=== PATIENT | female | born 1950 | race Caucasian/White ===

== ENCOUNTER → 2016-06-11 | Outpatient (CLI) | payer MEDICARE ==
[~2016-06-11] MED LIST: BONI150T PO; BONIVA; FLON1SPR; FLOVENT110; NEXI40CA PO; PRILOSECOT; PROA1AER INH; VERAP80TA PO; ZYRT10TA2 PO; ZYRTEC10
[2016-06-11 16:49] LABS: MEAN CORPUSCULAR HEMOGLOBIN 31.2 pg (27.0-33.0); MEAN CORPUSCULAR HGB CONC 33.8 g/dl (32.0-36.5); MEAN CORPUSCULAR VOLUME 92.3 fl (80.0-96.0); RED CELL DISTRIBUTION WIDTH 13.1 % (11.5-14.5); WHITE BLOOD COUNT 5.7 K/mm3 (4.0-10.0)
[2016-06-11 17:22] LABS: ALBUMIN 4.3 GM/DL (3.2-5.2); ALBUMIN/GLOBULIN RATIO 1.48 (1.00-1.93); ALKALINE PHOSPHATASE 50 U/L (45-117); ALT/SGPT 22 U/L (12-78); ANION GAP 10 MEQ/L (8-16); AST/SGOT 14 U/L (15-37); BILIRUBIN,TOTAL 0.4 MG/DL (0.2-1.0); BLOOD UREA NITROGEN 13 MG/DL (7-18); CARBON DIOXIDE LEVEL 27 MEQ/L (21-32); CHLORIDE LEVEL 104 MEQ/L (98-107); CREATININE FOR GFR 0.69 MG/DL (0.55-1.02); GLOMERULAR FILTRATION RATE > 60.0 (>45); GLUCOSE, FASTING 85 MG/DL (80-110); POTASSIUM SERUM 3.8 MEQ/L (3.5-5.1); SODIUM LEVEL 141 MEQ/L (136-145); TOTAL PROTEIN 7.2 GM/DL (6.4-8.2)
== END ==
LOC: M LAB 15:39
PROVIDERS: ATTEND Physician Assistant Medical
DX: R19.7 Diarrhea, unspecified (principal)

== ENCOUNTER → 2016-06-16 | Outpatient (CLI) | payer MEDICARE ==
[~2016-06-16] MED LIST changes: +E-Z-PAQUE 96% w/w SUSP 176GM BTL As Ordered ONE
--- NOTE | 2016-06-17 06:07 | REP ---
SMALL BOWEL FOLLOW THROUGH: The procedure was performed under the direct supervision of Dr. Banda. The images were reviewed with Dr. Banda. The operations dispatcher film shows no organomegaly or pathological masses. The intestinal gas pattern is nonspecific. Liquid barium was administered and the barium column was followed through the small bowel to the level of the terminal ileum. Small bowel transit time was approximately 15 minutes. During fluoroscopy, gentle palpation shows all loops are freely movable and pliable. There are no fixed or angulated loops. The small bowel mucosal pattern is normal in course and caliber. There is no transition to suggest a partial small bowel obstruction. Spot filming of the terminal ileum shows it to be unremarkable. IMPRESSION: Small bowel follow through examination within normal limits. 1 minute and 3 seconds of fluoroscopy time was utilized for this procedure. Reviewed by LEMUEL Bruno 06/17/2016 03:38 PEdited and Signed by Bakari Banda MD 06/17/2016 04:50 P
== END ==
LOC: M RAD 07:47
PROVIDERS: ATTEND Physician Assistant Medical
DX: R19.7 Diarrhea, unspecified (principal); R10.84 Generalized abdominal pain

== ENCOUNTER → 2016-06-25 | Outpatient (CLI) | payer MEDICARE ==
[~2016-06-25] VITALS: Ht 160 cm; Wt 62.6 kg
[~2016-06-25] MED LIST changes: -E-Z-PAQUE 96% w/w SUSP 176GM BTL As Ordered ONE; +LIDOCAINE 2% INJ 100 MG/5 ML SDV (FOR ANES.) As Ordered ONE; +NS 1,000 ML IV ONE; +PRAV10TA PO; +PROPOFOL 500 MG/50 ML VIAL As Ordered ONE; +VITA1CAP7 PO
--- NOTE | 2016-06-25 08:35 | ROOR ---
Patient Name: Jayshree Farfan Procedure Date: 06/25/2016 8:10 AM Date of : 1950 Age: 66 Room: [facility] Gender: Female Note Status: Finalized Procedure: Colonoscopy Indications: Chronic diarrhea, Follow-up of microscopic colitis Providers: Cachorro LUZ MD Referring MD: Renay Mccall MD Requesting Provider: Medicines: Monitored Anesthesia Care Complications: No immediate complications. Procedure: Pre-Anesthesia Assessment: - The heart rate, respiratory rate, oxygen saturations, blood pressure, adequacy of pulmonary ventilation, and response to care were monitored throughout the procedure. The Colonoscope was introduced through the anus and advanced to 4 cm into the ileum. The colonoscopy was performed without difficulty. The patient tolerated the procedure well. The quality of the bowel preparation was good. Findings: The perianal and digital rectal examinations were normal. The colon (entire examined portion) was redundant. The terminal ileum appeared normal. A few small-mouthed diverticula were found in the sigmoid colon. The entire examined colon appeared normal on direct and retroflexion views. Biopsies for histology were taken with a cold forceps from the entire colon for evaluation of microscopic colitis. Impression: - The terminal ileum is normal. - Minimal diverticulosis in the sigmoid colon. - The entire colon is otherwise normal on direct and retroflexion views. - Biopsies were taken with a cold forceps from the entire colon for evaluation of microscopic colitis. Recommendation: - Await pathology results. - Telephone endoscopist for pathology results in 2 weeks. Cachorro Luz MD Cachorro LUZ MD 06/25/2016 8:34:44 AM This report has been signed electronically. Number of Addenda: 0 Note Initiated On: 06/25/2016 8:10 AM Estimated Blood Loss: Estimated blood loss: none.
[2016-06-25 08:50] VITALS: BP 154/87
== END | disposition home or self-care (01) ==
LOC: M OPP 07:03
PROVIDERS: ATTEND Internal Medicine Gastroenterology
DX: K52.9 Noninfective gastroenteritis and colitis, unspecified (principal); K57.30 Diverticulosis of large intestine without perforation or abscess without bleeding; E78.5 Hyperlipidemia, unspecified; K21.9 Gastro-esophageal reflux disease without esophagitis; M19.90 Unspecified osteoarthritis, unspecified site; M81.0 Age-related osteoporosis without current pathological fracture; Z87.891 Personal history of nicotine dependence; Z79.899 Other long term (current) drug therapy; Z88.2 Allergy status to sulfonamides; Z88.0 Allergy status to penicillin; Z91.040 Latex allergy status

== ENCOUNTER → 2017-03-10 | Outpatient (CLI) | payer MEDICARE ==
[2017-03-10 07:59] LABS: BASO % 0.5 % (0.0-1.0); EOS # 0.1 10^3/uL (0.0-0.50); EOS % 2.2 % (0.0-3.0); HEMATOCRIT 42.7 % (36.0-47.0); IMMATURE GRANULOCYTE % 0.2 % (0-0); LYMPH # 1.4 10^3/uL (1.5-4.5); LYMPH % 23.8 % (24.0-44.0); MEAN CORPUSCULAR HEMOGLOBIN 28.9 pg (27.0-33.0); MEAN CORPUSCULAR HGB CONC 32.8 g/dl (32.0-36.5); MEAN CORPUSCULAR VOLUME 88.2 fl (80.0-96.0); MONO # 0.4 10^3/uL (0.0-0.8); MONO % 7.6 % (0.0-5.0); NEUTROPHILS # 3.8 10^3/uL (1.8-7.7); NEUTROPHILS % 65.7 % (36.0-66.0); PLATELET COUNT, AUTOMATED 208 10^3/uL (150-450); RED BLOOD COUNT 4.84 10^6/uL (4.00-5.40); RED CELL DISTRIBUTION WIDTH 13.8 % (11.5-14.5); WHITE BLOOD COUNT 5.8 10^3/uL (4.0-10.0)
[2017-03-10 08:30] LABS: ERYTHROCYTE SEDIMENTATION RATE 4 mm/hr (0-30)
== END ==
LOC: M LAB 07:37
DX: K62.5 Hemorrhage of anus and rectum (principal)
CPT/HCPCS: 85025

== ENCOUNTER 2017-04-13 10:31 | Emergency (ER) | payer MEDICARE ==
[2017-04-13] MEDS: NS 1,000 ML IV (10:52)
[2017-04-13] MEDS: ASPIRIN 81 MG CHEW TABLET PO (10:57)
[2017-04-13 11:03] LABS: BASO % 0.3 % (0.0-1.0); EOS # 0.2 10^3/uL (0.0-0.50); EOS % 1.3 % (0.0-3.0); HEMATOCRIT 45.6 % (36.0-47.0); HEMOGLOBIN 15.3 g/dl (12.0-16.0); IMMATURE GRANULOCYTE % 0.5 % (0-3.0); LYMPH # 2.1 10^3/uL (1.5-4.5); LYMPH % 16.8 % (24.0-44.0); MEAN CORPUSCULAR HEMOGLOBIN 29.5 pg (27.0-33.0); MEAN CORPUSCULAR HGB CONC 33.6 g/dl (32.0-36.5); MEAN CORPUSCULAR VOLUME 87.9 fl (80.0-96.0); MONO # 0.7 10^3/uL (0.0-0.8); MONO % 5.9 % (0.0-5.0); NEUTROPHILS # 9.2 10^3/uL (1.8-7.7); NEUTROPHILS % 75.2 % (36.0-66.0); PLATELET COUNT, AUTOMATED 243 10^3/uL (150-450); RED BLOOD COUNT 5.19 10^6/uL (4.00-5.40); RED CELL DISTRIBUTION WIDTH 13.9 % (11.5-14.5); WHITE BLOOD COUNT 12.3 10^3/uL (4.0-10.0)
[2017-04-13 11:25] LABS: ANION GAP 11 MEQ/L (8-16); BLOOD UREA NITROGEN 13 MG/DL (7-18); CALCIUM LEVEL 9.5 MG/DL (8.8-10.2); CARBON DIOXIDE LEVEL 24 MEQ/L (21-32); CHLORIDE LEVEL 105 MEQ/L (98-107); CREATININE FOR GFR 0.85 MG/DL (0.55-1.30); GLOMERULAR FILTRATION RATE > 60.0 (>45); GLUCOSE, FASTING 97 MG/DL (70-100); POTASSIUM SERUM 3.2 MEQ/L (3.5-5.1); SODIUM LEVEL 140 MEQ/L (136-145)
[2017-04-13 11:26] LABS: NT-PRO BNP 235 PG/ML (<125)
[2017-04-13 11:27] LABS: INR 0.91; PROTHROMBIN TIME 12.3 SECONDS (12.4-14.5)
[2017-04-13] MEDS: POTASSIUM CHLORIDE 10 MEQ SR TABLET PO (12:26)
== END 2017-04-13 12:42 | disposition home or self-care (01) ==
LOC: M ED 10:31
DX: I47.1 Supraventricular tachycardia (principal); R00.2 Palpitations; R42 Dizziness and giddiness; R07.9 Chest pain, unspecified; J01.90 Acute sinusitis, unspecified; J45.909 Unspecified asthma, uncomplicated; Z79.2 Long term (current) use of antibiotics; Z79.899 Other long term (current) drug therapy; Z88.1 Allergy status to other antibiotic agents; Z88.0 Allergy status to penicillin; Z88.2 Allergy status to sulfonamides; Z91.040 Latex allergy status
CPT/HCPCS: 71045

== ENCOUNTER → 2020-12-03 | Outpatient (CLI) | payer MEDICARE, OTHER ==
[~2020-12-03] MED LIST changes: +AZIT-12 PO; -BONI150T PO; +BONI1TAB PO; +D-3-50003 PO; -LIDOCAINE 2% INJ 100 MG/5 ML SDV (FOR ANES.) As Ordered ONE; -NS 1,000 ML IV ONE; -PRAV10TA PO; +PRAV10TA4 PO; -PROA1AER INH; +PROAAER10 INH; -PROPOFOL 500 MG/50 ML VIAL As Ordered ONE; +VERA80TA3 PO; -VERAP80TA PO; -VITA1CAP7 PO; +ZYRT10CA5 PO; -ZYRT10TA2 PO
[2020-12-03 20:18] LABS: ALBUMIN 4.4 GM/DL (3.2-5.2); ALT/SGPT 26 U/L (12-78); BILIRUBIN,TOTAL 0.3 MG/DL (0.2-1.0); BLOOD UREA NITROGEN 13 MG/DL (7-18); CALCIUM LEVEL 9.6 MG/DL (8.8-10.2); CARBON DIOXIDE LEVEL 28 MEQ/L (21-32); CHLORIDE LEVEL 107 MEQ/L (98-107); CREATININE FOR GFR 0.85 MG/DL (0.55-1.30); GLOMERULAR FILTRATION RATE > 60.0 (>39); GLUCOSE, FASTING 95 MG/DL (70-100); MAGNESIUM LEVEL 2.4 MG/DL (1.8-2.4); SODIUM LEVEL 140 MEQ/L (136-145); TOTAL PROTEIN 7.6 GM/DL (6.4-8.2)
== END ==
LOC: M WUC 15:33
PROVIDERS: ATTEND Physician Assistant
DX: I47.1 Supraventricular tachycardia (principal)

== ENCOUNTER → 2021-05-21 | Outpatient (CLI) | payer MEDICARE ==
[2021-05-21 16:01] LABS: HEMATOCRIT 41.7 % (36.0-47.0); HEMOGLOBIN 13.7 g/dl (12.0-15.5); MEAN CORPUSCULAR HEMOGLOBIN 29.8 pg (27.0-33.0); MEAN CORPUSCULAR HGB CONC 32.9 g/dl (32.0-36.5); MEAN CORPUSCULAR VOLUME 90.8 fl (80.0-96.0); PLATELET COUNT, AUTOMATED 191 10^3/uL (150-450); RED BLOOD COUNT 4.59 10^6/uL (4.00-5.40); WHITE BLOOD COUNT 8.4 10^3/uL (4.0-10.0)
[2021-05-21 16:41] LABS: ALBUMIN 4.3 GM/DL (3.2-5.2); ALT/SGPT 26 U/L (12-78); BILIRUBIN,TOTAL 0.6 MG/DL (0.2-1.0); BLOOD UREA NITROGEN 13 MG/DL (7-18); CALCIUM LEVEL 9.4 MG/DL (8.8-10.2); CARBON DIOXIDE LEVEL 28 MEQ/L (21-32); CHLORIDE LEVEL 107 MEQ/L (98-107); CREATININE FOR GFR 0.76 MG/DL (0.55-1.30); FREE T4 0.83 NG/DL (0.76-1.46); GLOMERULAR FILTRATION RATE > 60.0 (>39); GLUCOSE, FASTING 103 MG/DL (70-100); MAGNESIUM LEVEL 2.1 MG/DL (1.8-2.4); POTASSIUM SERUM 3.5 MEQ/L (3.5-5.1); SODIUM LEVEL 141 MEQ/L (136-145); TOTAL PROTEIN 7.4 GM/DL (6.4-8.2)
== END ==
LOC: M WUC 13:35
PROVIDERS: ATTEND Physician Assistant
DX: R00.2 Palpitations (principal)

== ENCOUNTER 2022-09-24 06:59 | Day surgery (SDC) | payer MEDICARE ==
[~2022-09-24] VITALS: Ht 157.5 cm; Wt 60.4 kg
[~2022-09-24 06:59] MED LIST changes: +ASPI81TA26 PO; +CALC600T61 PO; +CETI10CH PO; +COLA100C5 PO; +LIDOCAINE 2% 100MG/5ML SDV (FOR ANES.) As Ordered ONE; +NS 1,000 ML IV ONE; +PROBCAP14 PO; +VERA120T71 PO; +propofoL 200 MG/20 ML VIAL As Ordered ONE
[2022-09-24] MEDS ORDERED: ONDANSETRON 4MG 2ML VIAL As Ordered ONE (08:14)
[2022-09-24 08:36] VITALS: TEMP 97
[2022-09-24 09:01] VITALS: BP 118/58; O2SAT 95
== END 2022-09-24 09:03 | disposition home or self-care (01) ==
LOC: M OPP 06:59
PROVIDERS: ATTEND Internal Medicine Gastroenterology
DX: K92.1 Melena (principal); K57.30 Diverticulosis of large intestine without perforation or abscess without bleeding; K57.32 Diverticulitis of large intestine without perforation or abscess without bleeding; K63.5 Polyp of colon; R93.3 Abnormal findings on diagnostic imaging of other parts of digestive tract; Z79.02 Long term (current) use of antithrombotics/antiplatelets; Z79.899 Other long term (current) drug therapy; Z88.0 Allergy status to penicillin; Z88.1 Allergy status to other antibiotic agents; Z88.2 Allergy status to sulfonamides; Z91.040 Latex allergy status
CPT/HCPCS: 45380; 88305; J2405

== ENCOUNTER → 2022-09-28 | Outpatient (CLI) | payer MEDICARE, OTHER ==
[~2022-09-28] MED LIST changes: -LIDOCAINE 2% 100MG/5ML SDV (FOR ANES.) As Ordered ONE; -NS 1,000 ML IV ONE; -propofoL 200 MG/20 ML VIAL As Ordered ONE
== END ==
LOC: M WUC 08:09
DX: M25.572 Pain in left ankle and joints of left foot (principal)

== ENCOUNTER → 2023-06-15 | Outpatient (CLI) | payer MEDICARE | LOC: M PLAIMG 12:24 | PROVIDERS: ATTEND Physician Assistant | DX: I08.0 Rheumatic disorders of both mitral and aortic valves (principal) ==